=== PATIENT | male | born 1990 | race Two or more races ===

== ENCOUNTER → 2025-02-15 | Emergency (ER) | payer OTHER ==
[~2025-02-15] VITALS: Ht 170.2 cm; Wt 99.8 kg
[~2025-02-15] MED LIST: INDOMETHACIN50 MG PO; KETOROLAC TROMETHAMINE 30 MG VIAL IV ONE; KETOROLAC TROMETHAMINE 30 MG VIAL ONE; METHYLPREDNISOLONE SOD SUCC 40 MG VIAL IV ONE; METHYLPREDNISOLONE SOD SUCC 40 MG VIAL ONE; ZYLOPRIM100 M1 PO
== END | disposition home or self-care (01) ==
LOC: ER 17:40
DX: M25.579 Pain in unspecified ankle and joints of unspecified foot (principal); M10.9 Gout, unspecified
CPT/HCPCS: 96365; 99282; J1885; J3490